=== PATIENT | female | born 2000 | race Two or more races ===

== ENCOUNTER 2019-03-06 15:07 | Emergency (ER) | payer MEDICAID ==
[~2019-03-06] VITALS: Ht 152.4 cm; Wt 63.5 kg
[2019-03-06 15:53] VITALS: BP 110/61
== END 2019-03-06 16:24 | disposition home or self-care (01) ==
LOC: ER 15:07
DX: N39.0 Urinary tract infection, site not specified (principal); A60.00 Herpesviral infection of urogenital system, unspecified
CPT/HCPCS: 81002; 81025